=== PATIENT | female | born 1985 | race Caucasian/White ===

== ENCOUNTER 2018-11-08 08:02 | Emergency (ER) | payer BC ==
--- NOTE | 2018-11-08 08:11 | EDPHY ---
H & P Stated Complaint: +strep sent from to r/o peritonsil. abcess Time Seen by Provider: 11/08/18 08:10 - Medical/Surgical History Hx Asthma: No Hx Chronic Respiratory Disease: No Hx Diabetes: No Hx Cardiac Disease: No Hx Renal Disease: No Hx Cirrhosis: No Hx Alcoholism: No Hx HIV/AIDS: No Hx Splenectomy or Spleen Trauma: No Other PMH: denies - Social History Smoking Status: Never smoked Constitutional: Initial Vital Signs Temperature (C) 37.2 C 11/08/18 08:04 Heart Rate 81 11/08/18 08:04 Respiratory Rate 18 11/08/18 08:04 Blood Pressure 108/67 11/08/18 08:04 O2 Sat (%) 98 11/08/18 08:04 O2 Delivery Mode Room Air Allergies/Adverse Reactions: No Known Allergies Allergy (Unverified 11/08/18 08:04) Home Medications: Medication Instructions Recorded Cephalexin [Keflex (RX)] 500 mg PO TID #30 cap 11/08/18 Ondansetron Odt [Zofran Odt 4 mg 4 mg PO Q4 PRN #10 tab 11/08/18 (RX)] Medical Decision Making ED Course/Re-evaluation: CHIEF COMPLAINT: Possible peritonsillar abscess HISTORY OF PRESENT ILLNESS: The patient is a 33 y/o female arriving with her from urgent care with concern for a peritonsillar abscess. She first noticed throat pain on the left side 3 days ago. Symptoms have continued to worsen since then and now associated with a fever. She is able to swallow. She went to urgent care today and was positive for strep. They referred her on to the ED with concern for peritonsillar abscess. She is generally healthy. REVIEW OF SYSTEMS: A comprehensive 10 system review of systems is otherwise negative aside from elements mentioned in the history of present illness and medical decision making. PHYSICAL EXAM: HR, BP, O2 Sat, RR. Temp noted General Appearance: Alert, well hydrated, appropriate, and non-toxic appearing. Head: Atraumatic without scalp tenderness or obvious injury Eyes: Pupils equal, round, reactive to light and accommodation, EOMI, no trauma , no injection. Nose: Atraumatic, no rhinorrhea, clear. Throat: Left peritonsillar abscess. Mucus membranes moist. Neck: Supple, nontender, no lymphadenopathy. Respiratory: No retractions, no distress, no wheezes, and no accessory muscle use. Lungs are clear to auscultation bilaterally. Cardiovascular: Regular rate and rhythm, no murmurs, rubs, or gallops.Good capillary refill all extremities. Gastrointestinal: Abdomen is soft, nontender, non-distended, no masses, no rebound, no guarding, no peritoneal signs. Musculoskeletal: Normal active ROM of all extremities, atraumatic. Neurological: Alert, appropriate, and interactive. The patient has non-focal cranial nerves, motor, sensory, and cerebellar exam. Skin: No rashes, good turgor, no nodules on palpation. Past medical history: Denies Past surgical history: Denies Family history: Noncontributory Social history: at bedside. Visiting from [place] for a wedding. DIAGNOSTICS/PROCEDURES/CRITICAL CARE TIME: Procedure: Incision and Drainage abscess. The patient's abscess was located on the body part. Risks, benefits, alternatives discussed with the patient and consent obtained. The area was prepped and draped in sterile fashion. The patient received local anesthesia with Hurricane spray. The abscess was incised with a #11 blade and purulent drainage was expressed. The wound was irrigated and hemostasis achieved on reassessment. The patient tolerated the procedure well. The procedure was performed by myself, Dr. Bourne. DIFFERENTIAL DIAGNOSIS: The differential diagnosis for the patient's fever included but was not limited to pneumonia, urinary tract infection, viral syndrome, meningitis, and sepsis. MEDICAL DECISION MAKING: This is a healthy 33 y/o female who presents with a 3-day history of throat pain now associated with fever. She has an obvious left peritonsillar abscess on exam. Plan for treatment with IV, symptom management, and I&D of abscess. 1gm IV Ceftriaxone, 100mcg IV Fentanyl, 30mg IV Toradol, 8mg IV Decadron, and 4mg IV Zofran. 0834: Consulted with Dr. Espino, ENT. He agrees with my decision to proceed with I&D here and will see patient for follow up as an outpatient in his office. 0900: Reassessed patient. She is feeling significantly improved after successful I&D. She still has some mild throat soreness. She has good hemostasis at this time. She will be discharged with script for Keflex and ENT follow up. Standard care instructions and return precautions discussed. She is comfortable with plan for discharge. - Data Points Medications Given: Discontinued Medications Dexamethasone (Decadron Injection) 8 mg IVP EDNOW ONE Stop: 11/08/18 08:16 Last Admin: 11/08/18 08:29 Dose: 8 mg Fentanyl (Sublimaze) 100 mcg IVP EDNOW ONE Stop: 11/08/18 08:17 Last Admin: 11/08/18 08:25 Dose: 100 mcg Ceftriaxone Sodium/Dextrose (Rocephin 1 Gm (Premix)) 50 mls @ 100 mls/hr IV EDNOW ONE PRN Reason: Protocol Stop: 11/08/18 08:44 Last Admin: 11/08/18 08:32 Dose: 50 mls Ketorolac Tromethamine (Toradol) 30 mg IVP EDNOW ONE Stop: 11/08/18 08:17 Last Admin: 11/08/18 08:24 Dose: 30 mg Ondansetron HCl (Zofran) 4 mg IVP EDNOW ONE Stop: 11/08/18 08:17 Last Admin: 11/08/18 08:29 Dose: 4 mg Departure - Departure Disposition: Home, Routine, Self-Care Clinical Impression: Peritonsillar abscess Condition: Good Instructions: Peritonsillar Abscess (ED) Additional Instructions: 1. Take Keflex as prescribed. Be sure to complete prescription even if your symptoms have completely resolved. 2. Use Zofran as prescribed when needed for nausea or vomiting. 3. Use Tylenol and ibuprofen as directed on the packaging as needed for pain. 4. Follow up with ENT upon your return home for reassessment. 5. Return to the ED for difficulty breathing, inability to swallow, fever, or any other worsening of condition. Rinse mouth after eating. Using something like Listerine to rinse with after the first day may be helpful for a few days. Referrals: ASHLEY REED [Other] - As per Instructions Emile Espino MD [Medical Doctor] - As per Instructions Prescriptions: Cephalexin [Keflex (RX)] 500 mg PO TID #30 cap Ondansetron Odt [Zofran Odt 4 mg (RX)] 4 mg PO Q4 PRN #10 tab PRN Reason: Nausea/Vomiting, Use 1st Report Scribed for: Silas Bourne Report Scribed by: Princess Lawton Date of Report: 11/08/18 Time of Report: 11:53
[2018-11-08] MEDS ORDERED: BENZOCAINE UNIT DOSE SPRAY HURRICAINE MM ONE ×2 (08:15→08:31)
[2018-11-08] MEDS ORDERED: cefTRIAXone 1 GM/DEXTROSE 1 GM/50 ML BAG IV ONE (08:15)
[2018-11-08] MEDS ORDERED: DEXAMETHASONE 10 MG/ML VIAL IVP ONE (08:15)
[2018-11-08] MEDS ORDERED: KETOROLAC 30 MG/1 ML SDV IVP ONE (08:16)
[2018-11-08] MEDS ORDERED: fentaNYL 100 MCG/2 ML INJ IVP ONE (08:16)
[2018-11-08] MEDS ORDERED: ONDANSETRON 4 MG/2 ML VIAL IVP ONE (08:16)
[2018-11-08] MEDS ORDERED: DEXAMETHASONE 4 MG/ML VIAL ONE (08:23)
[2018-11-08 09:04] VITALS: BP 108/57
== END 2018-11-08 09:15 | disposition home or self-care (01) ==
PROC: 0C9PXZZ Drainage of Tonsils, External Approach (ICD-10-PCS; principal; 2018-11-08)
DX: J36 Peritonsillar abscess (principal)
CPT/HCPCS: 96374; J0696; J1100; J1885; J2405; J3010